=== PATIENT | female | born 1975 | race Caucasian/White ===

== ENCOUNTER → 2016-09-04 | Outpatient (CLI) | payer BC ==
[~2016-09-04] MED LIST: IBUP-1222 PO; PNV91TAB3 PO
== END | disposition home or self-care (01) ==
LOC: CFH 15:03
PROVIDERS: ATTEND Family Medicine
DX: Z12.31 Encounter for screening mammogram for malignant neoplasm of breast (principal)
CPT/HCPCS: 77063; G0202

== ENCOUNTER → 2016-09-29 | Outpatient (CLI) | payer BC | END | disposition home or self-care (01) | LOC: RAD 16:56 | PROVIDERS: ATTEND Family Medicine | DX: R11.2 Nausea with vomiting, unspecified (principal) | CPT/HCPCS: 76700 ==

== ENCOUNTER → 2016-10-08 | Outpatient (CLI) | payer BC | END | disposition home or self-care (01) | LOC: CFH 09:31 | PROVIDERS: ATTEND Family Medicine | DX: R92.0 Mammographic microcalcification found on diagnostic imaging of breast (principal); M54.2 Cervicalgia | CPT/HCPCS: 19081 ==

== ENCOUNTER 2017-05-23 15:51 | Emergency (ER) | payer BC ==
[~2017-05-23] VITALS: Ht 172.7 cm; Wt 60.9 kg
[2017-05-23 15:52] VITALS: BP 150/86
== END 2017-05-23 17:15 | disposition home or self-care (01) ==
LOC: ED 17:00
DX: S00.33XA Contusion of nose, initial encounter (principal); X58.XXXA Exposure to other specified factors, initial encounter; Y93.89 Activity, other specified; Y92.89 Other specified places as the place of occurrence of the external cause; Y99.8 Other external cause status
CPT/HCPCS: 70160; 99284

== ENCOUNTER 2017-08-24 19:55 | Emergency (ER) | payer BC ==
[~2017-08-24] VITALS: Ht 172.7 cm; Wt 58.9 kg
[2017-08-24 23:48] VITALS: BP 113/75
== END 2017-08-24 23:57 | disposition home or self-care (01) ==
LOC: ED 23:55
DX: O26.891 Other specified pregnancy related conditions, first trimester (principal); M54.5 Low back pain; R10.31 Right lower quadrant pain; Z3A.01 Less than 8 weeks gestation of pregnancy
CPT/HCPCS: 99281

== ENCOUNTER 2018-08-20 16:24 | Inpatient (IN) | payer BC ==
[~2018-08-20] VITALS: Ht 172.7 cm; Wt 75.0 kg
[2018-08-20 16:34] VITALS: BP 127/80
[2018-08-20] MEDS ORDERED: OXYTOCIN 30U/ 0.9% NaCL 500ML 500 ML IV ONE (16:59)
[2018-08-20] MEDS ORDERED: LACTATED RINGERS 1,000 ML IV SCH ×2 (16:59→20:01)
[2018-08-20] MEDS ORDERED: D5%-LACTATED RINGERS 1,000 ML IV SCH (16:59)
[2018-08-20] MEDS ORDERED: SODIUM CITRATE/CITRIC ACID 30 ML UDC PO PRN (17:00)
[2018-08-20] MEDS ORDERED: METOCLOPRAMIDE 5 MG/ML, 2ML IVPush PRN (17:00)
[2018-08-20] MEDS ORDERED: ONDANSETRON 2MG/ML, 2ML IVPush PRN ×2 (17:00→20:30)
[2018-08-20] MEDS ORDERED: TERBUTALINE 1 MG/ML, 1ML IVPush PRN (17:00)
[2018-08-20] MEDS ORDERED: FENTANYL PF 100 MCG/2ML IV PRN (17:00)
[2018-08-20] MEDS ORDERED: FENTANYL PF 100 MCG/2ML IVPush PRN (17:00)
[2018-08-20] MEDS ORDERED: OXYTOCIN 30U/ 0.9% NaCL 500ML 500 ML ONE ×2 (17:17→22:54)
[2018-08-20] MEDS ORDERED: NEWBORN KIT ONE (17:17)
[2018-08-20] MEDS ORDERED: LIDOCAINE 1%, 20ML ONE (17:17)
[2018-08-20] MEDS ORDERED: MISOPROSTOL 200 MCG TABLET ONE (17:17)
[2018-08-20 17:31] LABS: BASOPHILS # (AUTO) 0.03 x10^3/uL (0-0.1); BASOPHILS % (AUTO) 0 % (0-1); EOSINOPHILS # (AUTO) 0.01 x10^3/uL (0-0.4); EOSINOPHILS % (AUTO) 0 % (1-7); LYMPHOCYTES # (AUTO) 1.54 x10^3/uL (1-3.4); LYMPHOCYTES % (AUTO) 19 % (22-44); MD NO; MEAN CORPUSCULAR HEMOGLOBIN 30.5 pg (27.0-34.8); MEAN CORPUSCULAR HGB CONC 33.8 g/dL (32.4-35.8); MEAN CORPUSCULAR VOLUME 90.3 fL (80-100); MEAN PLATELET VOLUME 9.1 fL (7.4-10.4); MONOCYTES # (AUTO) 0.88 x10^3/uL (0.2-0.8); MONOCYTES % (AUTO) 11 % (2-9); NEUTROPHILS # (AUTO) 5.75 x10^3/uL (1.8-6.8); NEUTROPHILS % (AUTO) 70 % (42-75); PLATELET COUNT 162 x10^3/uL (130-400); RED BLOOD COUNT 3.84 x10^6/uL (3.82-5.3); RED CELL DISTRIBUTION WIDTH 14.9 % (9.6-15.2)
[2018-08-20] MEDS ORDERED: FENTANYL/BUPIV./NS/PF 250 ML EPIDCONT SCH ×2 (17:56→20:01)
[2018-08-20] MEDS ORDERED: FENTANYL PF 500 MCG, BUPIVACAINE/PF 0.5%, 30ML 62.5 ML in SODIUM CHLORIDE 0.9% 177.5 ML EPIDCONT SCH ×2 (18:30→20:30)
[2018-08-20 19:31] VITALS: BP 125/77
[2018-08-20] MEDS ORDERED: LACTATED RINGERS 1,000 ML IVBOLUS PRN (20:30)
[2018-08-20] MEDS ORDERED: CALCIUM CARBONATE 500 MG TAB.CHEW ONE (21:00)
[2018-08-20] MEDS ORDERED: CALCIUM CARBONATE 500 MG TAB.CHEW PO PRN (21:30)
[2018-08-20] MEDS ORDERED: FENTANYL PF 100 MCG/2ML ONE (22:02)
[2018-08-20] MEDS: IBUPROFEN 600 MG TABLET PO PRN (22:45)
[2018-08-20] MEDS ORDERED: IBUPROFEN 600 MG TABLET ONE (22:54)
[2018-08-20] MEDS ORDERED: DOCUSATE 100 MG CAPSULE PO PRN (23:30)
[2018-08-20] MEDS ORDERED: MISOPROSTOL 200 MCG TABLET PR PRN (23:30)
[2018-08-21] MEDS ORDERED: OXYcodone/APAP 5/325MG TABLET ONE (00:10)
[2018-08-21] MEDS: OXYTOCIN 30U/ 0.9% NaCL 500ML 500 ML IV SCH ×2 (00:12→09:28)
[2018-08-21] MEDS: OXYcodone/APAP 5/325MG TABLET PO PRN ×2 (00:12→04:48)
[2018-08-21 01:00] VITALS: BP 119/74
[2018-08-21 04:35] VITALS: BP 118/72
[2018-08-21] MEDS: IBUPROFEN 600 MG TABLET PO PRN ×2 (04:47→11:41)
[2018-08-21 06:50] LABS: BASOPHILS # (AUTO) 0.03 x10^3/uL (0-0.1); BASOPHILS % (AUTO) 0 % (0-1); EOSINOPHILS # (AUTO) 0.03 x10^3/uL (0-0.4); EOSINOPHILS % (AUTO) 0 % (1-7); LYMPHOCYTES % (AUTO) 18 % (22-44); MD NO; MEAN CORPUSCULAR HGB CONC 33.2 g/dL (32.4-35.8); MEAN CORPUSCULAR VOLUME 90.2 fL (80-100); MEAN PLATELET VOLUME 9.1 fL (7.4-10.4); MONOCYTES # (AUTO) 0.96 x10^3/uL (0.2-0.8); MONOCYTES % (AUTO) 10 % (2-9); NEUTROPHILS % (AUTO) 72 % (42-75); PLATELET COUNT 152 x10^3/uL (130-400); RED BLOOD COUNT 3.64 x10^6/uL (3.82-5.3); RED CELL DISTRIBUTION WIDTH 15.3 % (9.6-15.2)
[2018-08-21 08:12] VITALS: BP 124/83
[2018-08-21] MEDS ORDERED: PRENATAL VIT/IRON/FA 1 EACH TABLET PO SCH (09:00)
[2018-08-21] MEDS ORDERED: IBUP-1223 PO (10:19)
== END 2018-08-21 13:05 | disposition home or self-care (01) | DRG 807 ==
LOC: LDOP 16:24 → LDIP 17:09 → 2NW 08-21 00:57
PROVIDERS: ADMIT Obstetrics & Gynecology; ATTEND Obstetrics & Gynecology
PROC: 10E0XZZ Delivery of Products of Conception, External Approach (ICD-10-PCS; principal; 2018-08-20)
DX: O69.81X0 Labor and delivery complicated by cord around neck, without compression, not applicable or unspecified (principal); Z37.0 Single live birth; Z3A.39 39 weeks gestation of pregnancy
CPT/HCPCS: 36415; J7121; 82803; 85025; 86850; 86900; G0378; J3010; J3490; J2590; J7050; J7120